=== PATIENT | male | born 1995 | race Caucasian/White ===

== ENCOUNTER 2025-04-06 01:12 | Inpatient (IN) | payer OTHER ==
[2025-04-06] VITALS (16 sets, daily range): BP systolic 98–138; BP diastolic 62–88
[~2025-04-06] VITALS: Ht 177.8 cm; Wt 98.8 kg
[~2025-04-06 01:12] MED LIST: ACET80; CODACE30 PO; DOXY100 PO; HYDACE5 PO; IBUP600 PO; IBUP800 PO; OMEP20ER PO; RXHYDACE PO; TRAM50 PO
[2025-04-06] MEDS ORDERED: Morphine Sulfate 4 MG/1 ML Injection IV ONE (01:20)
[2025-04-06 01:39] LABS: BASOPHILS ABSOLUTE AUTO 0.08 K/mm3 (0.00-0.23); BASOPHILS PERCENT AUTO 1 % (0-2); EOSINOPHILS ABSOLUTE AUTO 0.25 K/mm3 (0.00-0.68); EOSINOPHILS PERCENT AUTO 3 % (0-6); Hematocrit 41.2 % (37.0-53.0); Hemoglobin 14.0 g/dL (13.5-17.5); IMMATURE GRAN ABSOLUTE AUTO 0.04 K/mm3 (0.00-0.10); IMMATURE GRAN PERCENT AUTO 0 % (0-1); LYMPHOCYTES ABSOLUTE AUTO 2.82 K/mm3 (0.84-5.20); LYMPHOCYTES PERCENT AUTO 28 % (21-46); MONOCYTES ABSOLUTE AUTO 0.72 K/mm3 (0.16-1.47); MONOCYTES PERCENT AUTO 7 % (4-13); Mean Corpuscular HGB Conc 34.0 g/dL (31.5-36.5); Mean Corpuscular Volume 84 fL (80-100); NEUTROPHILS ABSOLUTE AUTO 6.24 K/mm3 (1.96-9.15); NEUTROPHILS PERCENT AUTO 61 % (41-73); NRBC ABSOLUTE 0.00 K/mm3 (0.00-0.02); NRBC Auto 0.0 /100 WBC (0.0-0.2); Platelet Count 339 K/mm3 (150-400); RDW Coefficient Variation 12.4 % (11.7-14.2); RDW Standard Deviation 37.2 fL (35.1-46.3)
[2025-04-06] MEDS ORDERED: HYDROmorphone HCl/Pf 1MG SYR IV PRN ×4 (01:45→10:00)
[2025-04-06 01:53] LABS: Prothrombin Time Results 11.0 Sec (9.7-11.5)
[2025-04-06 02:14] LABS: Alanine Aminotransfer (ALT/SGP 25 U/L (12-78); Albumin, Blood 3.8 g/dL (3.4-5.0); Albumin/Globulin Ratio 1.2 (0.8-1.8); Anion Gap 8 mmol/L (3-11); Aspartate Aminotrans (AST/SGOT 21 U/L (12-37); Bilirubin, Total 0.4 mg/dL (0.1-1.0); Blood Urea Nitrogen 11 mg/dL (8-24); CO2, Blood 27 mmol/L (21-32); Calcium, Blood 9.0 mg/dL (8.5-10.1); Chloride, Blood 109 mmol/L (98-108); Creatinine, Blood 1.04 mg/dL (0.60-1.20); Ethanol (Alcohol), Blood, Med <3 mg/dL; Globulin, Blood 3.2 g/dL (2.2-4.0); Glucose, Blood 108 mg/dL (70-99); Potassium, Blood 3.9 mmol/L (3.5-5.5); Sodium, Blood 140 mmol/L (136-145); Total Protein, Blood 7.0 g/dL (6.4-8.2)
[2025-04-06] MEDS ORDERED: Ketamine HCl 100 MG / ML 5ML Vial IV ONE (03:55)
[2025-04-06] MEDS ORDERED: NS 1,000 ML IV ONE (03:59)
[2025-04-06] MEDS ORDERED: Propofol 10mg/ml 20 ml Vial (Procedural) IV ONE (04:00)
[2025-04-06] MEDS ORDERED: NS 1,000 ML IV SCH (04:10)
[2025-04-06] MEDS ORDERED: Ondansetron HCl 2 MG / ML 2ML Vial IV PRN ×2 (04:10→12:55)
[2025-04-06] MEDS ORDERED: Tranexamic Acid 100 ML IV SCH (04:55)
[2025-04-06] MEDS ORDERED: CeFAZolin Sodium 2,000 MG in NS 100 ML IV SCH ×2 (04:55→22:00)
--- NOTE | 2025-04-06 05:00 | NUR ---
ARRIVAL TO SURGICAL UNIT ROOM 214 FROM ER. PT ARRIVED VIA RNEY AT 0440. PT VERY PAINFUL WITH TRANSFERING FROM [facility] TO HOSPITAL BED VIA SLIDER SHEET. SPLINT TO RLE C/D/I, CAP REFILL AND PULSES INTACT. PT ORIENTED TO ROOM AND CALL LIGHT, INFORMED OF UNIT POLICIES AND PROCEDURES. ENCOURAGED TO SEND HOME NON ESSENTIAL ITEMS AND TO REMOVE ANY IGNITION SOURCES TO CAR. PT VERBALIZED UNDERSTANDING.
--- NOTE | 2025-04-06 07:00 | NUR ---
SHIFT SUMMARY NOC. PT ADMIT FOR RIGHT TIB/FIB FX. PT A/O X4, PT MEDICATED FOR PAIN WITH IV DILAUDID WITH SOME RELIEF OF SX. SURGICAL INFECTION PREVENTION COMPLETE. SPLINT TO RLE C/D/I. PT MAKES NEEDS KNOWN, CALL LIGHT IN REACH.
--- NOTE | 2025-04-06 08:20 | NUR ---
TO DAY SURGERY VIA HOSPITAL BED
[2025-04-06] MEDS ORDERED: FentaNYL Citrate 50 MCG/ML 2 ML Injection ONE (09:41)
[2025-04-06] MEDS ORDERED: Midazolam HCl 1MG / ML 2ML Vial ONE (09:41)
[2025-04-06] MEDS ORDERED: Rocuronium Bromide 10 MG/ML 5ML Injection IV ONE (09:42)
[2025-04-06] MEDS ORDERED: Albuterol 2.5 MG/3 ML VIAL INH PRN (10:00)
[2025-04-06] MEDS ORDERED: FentaNYL Citrate 50 MCG/ML 2 ML Injection IV PRN ×3 (10:00→12:55)
[2025-04-06] MEDS ORDERED: HYDROmorphone HCl/Pf 1MG SYR ONE (10:10)
[2025-04-06] MEDS ORDERED: Phenylephrine HCl 100 MCG/ML-NS 10MLSYR (1MG/10ML) ONE ×2 (10:17→10:39)
[2025-04-06] MEDS ORDERED: Dexamethasone Sod Phos 10 MG/ML 1ML VIAL ONE (10:20)
[2025-04-06] MEDS ORDERED: ePHEDrine Sulfate 50 MG/ML 1ML Injection ONE (10:35)
[2025-04-06] MEDS ORDERED: HYDROcodone 5-APAP 325 TAB PO PRN (12:50)
[2025-04-06] MEDS ORDERED: Tranexamic Acid 100 ML IV ONE (13:30)
[2025-04-06] MEDS ORDERED: CeFAZolin Sodium 1000 mg Vial ONE ×2 (13:44)
[2025-04-06] MEDS ORDERED: Ondansetron HCl 2 MG / ML 2ML Vial ONE (14:14)
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
--- NOTE | 2025-04-06 18:22 | NUR ---
ATTEMPTED ICE PACK. PT COULD NOT TOLERATE. REFUSES TO FULLY ELEVATE R LEG. ONLY PILLOWS UNDER KNEE BOTH KNEES.
--- NOTE | 2025-04-06 19:21 | NUR ---
ALLOWED 1 PILLOW UNDER HEEL FOR SOME ELEVATION. VERY PAINFUL.
[2025-04-06] MEDS ORDERED: Potassium Chloride 10 Meq Tablet SA PO ONE (20:55)
[2025-04-07 03:54] VITALS: BP 112/68
--- NOTE | 2025-04-07 04:20 | NUR ---
SHIFT SUMMARY PT S/P TIB/FIB REPAIR, POD 0. PT HAS BEEN PAINFUL REQUIERING PRN'S Q2HR ORDERED. PT REPORTS RELIEF OF PAIN WITH PAIN MEDICATIONS. SURGICAL DRESSING INTACT. R LEG ELEVATED. TOES ON RIGHT FOOT ARE WARM TO TOUCH AND PT REPORTS SENSATION. POST OP VITALS STABLE. IV ANTIBIOTICS INFUSED. PT HAS NOT YET VOIDED POST OP. PT WAS STRAIGHT CATH JUST BEFORE SHIFT CHANGE POST OP. BLADDER SCAN THIS AM REVEALED OVER 964 MLS IN BLADDER. PT WANTED TO ATTEMPT TO TRY BEFORE CATHETER. HOWEVER, PT HAS BEEN UNSUCCESSFUL. PT AGREEABLE TO STRAIGHT CATH AT THIS TIME. PT TO BE STRAIGHT CATH PER PROTOCOL. NO OTHER CHANGES TO REPORT OVERNIGHT. BED IN LOWEST POSITION, CALL LIGHT WITHIN REACH.
[2025-04-07] MEDS ORDERED: HYDROmorphone HCl/Pf 1MG SYR IV PRN (05:40)
--- NOTE | 2025-04-07 06:22 | NUR ---
RUEDA CATHETER RUEDA CATHETER ORDER OBTAINED AND RUEDA WAS PLACED BY [employer] PRODUCER. 800 MLS OF URINE DRAINED SO FAR AT THIS TIME.
[2025-04-07 07:22] VITALS: BP 137/73
[2025-04-07 07:33] LABS: BASOPHILS ABSOLUTE AUTO 0.02 K/mm3 (0.00-0.23); BASOPHILS PERCENT AUTO 0 % (0-2); EOSINOPHILS ABSOLUTE AUTO 0.02 K/mm3 (0.00-0.68); EOSINOPHILS PERCENT AUTO 0 % (0-6); Hematocrit 29.0 % (37.0-53.0); Hemoglobin 9.7 g/dL (13.5-17.5); IMMATURE GRAN ABSOLUTE AUTO 0.04 K/mm3 (0.00-0.10); IMMATURE GRAN PERCENT AUTO 0 % (0-1); LYMPHOCYTES ABSOLUTE AUTO 1.62 K/mm3 (0.84-5.20); LYMPHOCYTES PERCENT AUTO 15 % (21-46); MONOCYTES ABSOLUTE AUTO 1.02 K/mm3 (0.16-1.47); MONOCYTES PERCENT AUTO 10 % (4-13); Mean Corpuscular HGB Conc 33.4 g/dL (31.5-36.5); Mean Corpuscular Volume 87 fL (80-100); NEUTROPHILS ABSOLUTE AUTO 7.98 K/mm3 (1.96-9.15); NEUTROPHILS PERCENT AUTO 75 % (41-73); NRBC ABSOLUTE 0.00 K/mm3 (0.00-0.02); NRBC Auto 0.0 /100 WBC (0.0-0.2); Platelet Count 231 K/mm3 (150-400); RDW Coefficient Variation 12.5 % (11.7-14.2); RDW Standard Deviation 39.1 fL (35.1-46.3)
[2025-04-07 07:54] LABS: Anion Gap 6.0 mmol/L (3-11); Blood Urea Nitrogen 9.0 mg/dL (8-24); CO2, Blood 29.0 mmol/L (21-32); Calcium, Blood 8.5 mg/dL (8.5-10.1); Chloride, Blood 106.0 mmol/L (98-108); Creatinine, Blood 0.8 mg/dL (0.60-1.20); Glucose, Blood 147.0 mg/dL (70-99); Potassium, Blood 3.5 mmol/L (3.5-5.5); Sodium, Blood 137.0 mmol/L (136-145)
--- NOTE | 2025-04-07 12:18 | NUR ---
MEDICATED PT FOR PAIN WITH IV + ORAL MEDICATIONS. ENCOURAGED AND EDUCATED PT ON IMPORTANCE OF ELEVATION. ATTEMPTED TO ADD ANOTHER PILLOW UNDER RLE PT REPORTS "THROBBING" PAIN. PT UNABLE TO TOLERATE REPOSITIONING AND ASKED THIS RN NOT TO TOUCH RLE. YELLOW/PINK DRAINAGE NOTED ON DRESSING ON BACK OF CALF. PT REFUSED TO LET THIS RN FURTHER ASSESS DRAINAGE.
[2025-04-07 16:24] VITALS: BP 124/76
--- NOTE | 2025-04-07 17:24 | NUR ---
PATIENT REFUSED CATH CARE.RN IN ROOM WHEN PATIENT REFUSED.
--- NOTE | 2025-04-07 17:43 | NUR ---
SHIFT SUMMARY PT STRUGGLES WITH PAIN CONTROL. PT FINALLY AGREED TO HAVE RLE ELEVATED HIGHER ABOVE LEVEL OF HEART AND ICE TO R THIGH. IV DILAUDID/2 REJI/VALIUM FOR PAIN CONTROL. RUEDA IN PLACE AND PATENT. REPOSITIONING PRN WHEN PT REQUESTS. IV ABX PER ORDERS. VSS. PLAN FOR NPO AT MIDNIGHT FOR SUGERY TOMORROW. CALL LIGHT WITHIN REACH.
[2025-04-07 19:19] VITALS: BP 136/75
[2025-04-08] VITALS (13 sets, daily range): BP systolic 125–159; BP diastolic 68–84
--- NOTE | 2025-04-08 05:15 | NUR ---
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
[2025-04-08] MEDS ORDERED: Tranexamic Acid 100 ML IV SCH ×2 (07:25→12:05)
[2025-04-08] MEDS ORDERED: HYDROmorphone HCl/Pf 1MG SYR IV PRN ×3 (11:35→18:20)
--- NOTE | 2025-04-08 14:33 | NUR ---
ANXIETY PT HAS BEEN EXPERIENCING ANXIETY TODAY. WHEN PT HAS INCREASED ANXIETY HE YELLS OUT AND SAYS OUCH AND CURSES. DURING EPISODES PT IS UNABLE TO CLEARLY STATE IF PAIN OR ANXIETY IS WORSE. AFTER MEDICATING FOR PAIN AT 1115 PT REPORTED FEELING LIKE STAFF WAS JUST GIVING HIM PAIN MEDICATION TO CALM HIM DOWN. THIS RN ASKED IF PAIN OR ANXIETY IS WORSE. PT REPORTS ANXIETY IS WORSE THAN PAIN. PT'S S/O AT THE BEDSIDE DURING THIS TIME. THIS RN REACHED OUT TO DR. CARMEN REGARDING ANXIETY, XANAX ORDERED. PT WOKE FROM A NAP, INITIALLY HE DENIED BOTH PAIN AND ANXIETY WHEN MEDICATION WAS OFFERED. PT QUICKLY ESCALATED TO CURSING, MOANING AND SAYING OUCH. HE ALSO REPORTS FEELING LIKE HE CANNOT VOID. BLADDER SCAN OFFERED AND DECLINED BY PATIENT. PT ASKING TO GET OOB AND SIT IN A WHEELCHAIR, PT EDUCATED THAT GETTING OOB MAY NOT BE SAFE R/T INCREASED ANXIETY LEVELS AND PAIN WITH ANY MOVEMENT. OTHER REPOSITIONG OPTIONS OFFERED AND DECLINED BY PATIENT. PT DOES RESPOND SOMEWHAT WELL TO CALM CLEAR INSTRUCTION. HE ALSO BENEFITS FROM THERAPEUTIC LISTENING.
[2025-04-08] MEDS ORDERED: FentaNYL Citrate 50 MCG/ML 2 ML Injection ONE (15:47)
[2025-04-08] MEDS ORDERED: Naloxone HCl 0.4MG / ML 1ML Vial IV PRN ×2 (16:00→18:20)
[2025-04-08] MEDS ORDERED: FentaNYL Citrate 50 MCG/ML 2 ML Injection IV PRN ×2 (16:05)
[2025-04-08] MEDS ORDERED: Albuterol 2.5 MG/3 ML VIAL INH PRN (16:05)
[2025-04-08] MEDS ORDERED: Ondansetron HCl 2 MG / ML 2ML Vial IV PRN ×2 (16:05→18:20)
[2025-04-08] MEDS ORDERED: Midazolam HCl 1MG / ML 2ML Vial IV PRN (16:05)
--- NOTE | 2025-04-08 16:18 | NUR ---
ANXIETY PT IS HAVING INCREASED ANXIETY AND WOULD LIKE TO KNOW WHEN SURGERY WILL BE. PT HAS BEEN UPDATED T/O THE DAY THAT HE REMAINS ON THE LIST FOR SURGERY AND THAT HIS CASE HAS NOT BEEN CANCELED BUT STAFF WILL UPDATE HIM WHEN AN UPDATE IS AVALIABLE. THIS RN HAS REACHED OUT TO OR STAFF, WHO REPORT THAT SURGERY IS STILL THE PLAN, PT NOTIFIED. PT EXPRESSED WANTING TO TALK TO A DOCTOR. HE WAS YELLING OUT. HE DECLINED PAIN MEDICATION UNTIL HE COULD SPEAK TO THE DOCTOR. DR. CARMEN CAME AND SPOKE WITH THE PATIENT, SHE EXPLAINED THAT HE IS STILL SCHEDULED FOR SURGERY BUT THE SURGEON IS STILL IN THE OR WITH OTHER PATIENTS. PT THEN RE-OFFERED PAIN MEDICATION, HE DECLINED. APPROXIMATELY 5 MINUTES LATER PT CALLED STAFF TO ROOM TO ASSIST WITH REPOSITIONING, PT'S BACK WAS WASHED AND DRIED PER HIS REQUEST. HE WAS ABLE TO MOVE INDEPENDENTLY TO ALLOW STAFF TO WASH HIS BACK. PT REQUESTED THAT PILLOWS BE REMOVED FROM UNDER HIS R KNEE, HE WAS ASSISTED WITH THIS TASK. PAIN MEDICATION AGAIN OFFERED AND PATIENT DECLINED. PT CALLED STAFF BACK TO THE ROOM REQUESTING AN UPDATE, REITERATED PREVIOUS UPDATES. PAIN MEDICATION AGAIN OFFERED SINCE PT WAS COMPLAINING OF PAIN. HE AGREED TO PAIN MEDICATION. WHEN RN RETURNED TO THE ROOM PT WAS RESTING WITH EYES CLOSED, RESP RATE AND EFFORT EVEN AND UNLABORED.
[2025-04-08] MEDS ORDERED: Magnesium Hydroxide Conc 10 ML UDC PO PRN (18:15)
[2025-04-08] MEDS ORDERED: Ondansetron HCl 2 MG / ML 2ML Vial ONE (18:36)
[2025-04-08] MEDS ORDERED: Dexamethasone Sod Phos 10 MG/ML 1ML VIAL ONE (18:36)
--- NOTE | 2025-04-08 19:01 | NUR ---
04/08/251900 Vladimir Santo ON SCHEDULED ANTIBIOTICS
--- NOTE | 2025-04-08 19:12 | NUR ---
SHIFT SUMMARY PT HAS BEEN ANXIOUS AND PAINFUL T/O THE DAY. PT YELLS OUT/CURSES WHEN AWAKE/ANXIOUS, OCCASIONALLY HE RESPONDS TO THERAPEUTIC LISTENING AND REASSURANCE. PT RESPONDS TO CALM/FIRM INSTRUCTION. FRIENDS/FAMILY HAVE BEEN PRESENT FOR SUPPORT. PAIN MANAGED WITH DILAUDID, XANAX FOR ANXIETY. REPORT GIVEN TO TESS LUTHER.
--- NOTE | 2025-04-08 20:41 | NUR ---
PT ARRIVED FROM PACU AT 1999. REPORT RECIEVED FROM INDUSTRIAL HYGIENISTASHKAN WEAVER. PT SLEEPY BUT DOES OPEN EYES TO VOICE AND IS ABLE TO LIFT HIS ARM TO GET BLOOD PRESSURE CUFF ON. PT ON RA AND O2 SATS MID TO HIGH 90'S AT THIS TIME. VITALS ALL STABLE. LARGE WRAP DRESSING TO RLE, TOES WARM AND PINK WITH GOOD CAP REFILL. PT APPEARS COMFORTABLE AND SHOWING NO SIGNS OF DISTRESS. FIRST DOSE OF TXA STARTED BY PACU NURSE AT 1945, 2ND DOSE TO START 3 HOURS LATER. PT'S AND FRIEND AT THE BEDSIDE.
[2025-04-09 02:45] VITALS: BP 134/64
--- NOTE | 2025-04-09 04:44 | NUR ---
FOOD AND BEVERAGE OUTLETS MANAGER SUMMARY PT ARRIVED FROM PACU SHORTLY AFTER START OF SHIFT AFTER AN I&D OF HIS RLE. PT DROWSY POST OP BUT DID WAKE UP AND RESPOND TO STAFF. ALL POST OP VITALS WNL. RLE WRAPPED IN CALLIE WRAP, TOES WITH GOOD CAP REFILL AND PT HAS FULL SENSATION. ABLE TO WIGGLE TOES WELL. PAIN CONTROL HAS BEEN MUCH BETTER TONIGHT, PT REQUIRED ONE DOSE OF IV DILAUDID 0.5 MG EARLY IN THE SHIFT AND THEN A 5 MG ROXICODONE LATER ON IN THE MORNING AND PT HAS BEEN COMFORTABLE AND HAS SLEPT WELL TONIGHT. PT HAS REMAINED ON ROOM AIR AND SATS ARE MID 90'S EVEN AFTER PAIN MEDS. PT HAD A FEW BITES OF SOME FOOD THAT FAMIILY BROUGHT IN FOR HIM AND HAS TOLERATED THAT WITH NO PROBLEM. WCTM.
[2025-04-09 07:26] VITALS: BP 124/66
[2025-04-09 10:44] LABS: BASOPHILS ABSOLUTE AUTO 0.01 K/mm3 (0.00-0.23); BASOPHILS PERCENT AUTO 0 % (0-2); EOSINOPHILS ABSOLUTE AUTO 0.00 K/mm3 (0.00-0.68); EOSINOPHILS PERCENT AUTO 0 % (0-6); Hematocrit 26.1 % (37.0-53.0); Hemoglobin 8.9 g/dL (13.5-17.5); IMMATURE GRAN ABSOLUTE AUTO 0.04 K/mm3 (0.00-0.10); IMMATURE GRAN PERCENT AUTO 0 % (0-1); LYMPHOCYTES ABSOLUTE AUTO 0.54 K/mm3 (0.84-5.20); LYMPHOCYTES PERCENT AUTO 4 % (21-46); MONOCYTES ABSOLUTE AUTO 0.66 K/mm3 (0.16-1.47); MONOCYTES PERCENT AUTO 5 % (4-13); Mean Corpuscular HGB Conc 34.1 g/dL (31.5-36.5); Mean Corpuscular Volume 85 fL (80-100); NEUTROPHILS ABSOLUTE AUTO 12.17 K/mm3 (1.96-9.15); NEUTROPHILS PERCENT AUTO 91 % (41-73); NRBC ABSOLUTE 0.00 K/mm3 (0.00-0.02); NRBC Auto 0.0 /100 WBC (0.0-0.2); Platelet Count 275 K/mm3 (150-400); RDW Coefficient Variation 12.1 % (11.7-14.2); RDW Standard Deviation 37.2 fL (35.1-46.3)
[2025-04-09 11:39] LABS: Anion Gap 8.0 mmol/L (3-11); Blood Urea Nitrogen 5.0 mg/dL (8-24); CO2, Blood 27.0 mmol/L (21-32); Calcium, Blood 8.4 mg/dL (8.5-10.1); Chloride, Blood 107.0 mmol/L (98-108); Creatinine, Blood 0.62 mg/dL (0.60-1.20); Glucose, Blood 151.0 mg/dL (70-99); Potassium, Blood 4.0 mmol/L (3.5-5.5); Sodium, Blood 138.0 mmol/L (136-145)
[2025-04-09] MEDS ORDERED: CeFAZolin Sodium 2,000 MG in NS 100 ML IV SCH (16:00)
--- NOTE | 2025-04-09 17:48 | NUR ---
END OF SHIFT PT RESTING. UP WITH PT EARLIER TODAY. RECENTLY MEDICATED FOR PAIN. PRESENTLY VISITING WITH FRIENDS AND FAMILY; EATING FOOD THAT FAMILY BROUGHT IN. LAUGHING AND JOKING WITH FAMILY AND FRIENDS. WILL CONTINUE TO MONITOR.
[2025-04-09 18:27] VITALS: BP 128/70
[2025-04-10 03:59] VITALS: BP 129/72
[2025-04-10 04:24] LABS: BASOPHILS ABSOLUTE AUTO 0.02 K/mm3 (0.00-0.23); BASOPHILS PERCENT AUTO 0 % (0-2); EOSINOPHILS ABSOLUTE AUTO 0.05 K/mm3 (0.00-0.68); EOSINOPHILS PERCENT AUTO 1 % (0-6); Hematocrit 25.9 % (37.0-53.0); Hemoglobin 8.7 g/dL (13.5-17.5); IMMATURE GRAN ABSOLUTE AUTO 0.05 K/mm3 (0.00-0.10); IMMATURE GRAN PERCENT AUTO 1 % (0-1); LYMPHOCYTES ABSOLUTE AUTO 1.91 K/mm3 (0.84-5.20); LYMPHOCYTES PERCENT AUTO 20 % (21-46); MONOCYTES ABSOLUTE AUTO 0.70 K/mm3 (0.16-1.47); MONOCYTES PERCENT AUTO 7 % (4-13); Mean Corpuscular HGB Conc 33.6 g/dL (31.5-36.5); Mean Corpuscular Volume 87 fL (80-100); NEUTROPHILS ABSOLUTE AUTO 7.06 K/mm3 (1.96-9.15); NEUTROPHILS PERCENT AUTO 72 % (41-73); NRBC ABSOLUTE 0.00 K/mm3 (0.00-0.02); NRBC Auto 0.0 /100 WBC (0.0-0.2); Platelet Count 339 K/mm3 (150-400); RDW Coefficient Variation 12.2 % (11.7-14.2); RDW Standard Deviation 38.8 fL (35.1-46.3)
[2025-04-10 04:51] LABS: Anion Gap 7.0 mmol/L (3-11); Blood Urea Nitrogen 7.0 mg/dL (8-24); CO2, Blood 28.0 mmol/L (21-32); Calcium, Blood 8.6 mg/dL (8.5-10.1); Chloride, Blood 106.0 mmol/L (98-108); Creatinine, Blood 0.71 mg/dL (0.60-1.20); Glucose, Blood 141.0 mg/dL (70-99); Potassium, Blood 3.5 mmol/L (3.5-5.5); Sodium, Blood 137.0 mmol/L (136-145)
--- NOTE | 2025-04-10 04:55 | NUR ---
MANAGER OF FINANCIAL SUMMARY NO ACUTE CHANGES THIS SHIFT. RLE WITH GOOD SENSATION AND CAP REFILL. PT ABLE TO WIGGLE TOES AND DENIES N/T TO AREA. PAIN WELL CONTROLLED TONIGHT, SEE NOV. PT WAS ABLE TO AMBULATE TO THE RECLINER AND SPENT A FEW HOURS SITTING UP WITH LEGS ELEVATED. PT HAS NOT REQUIRED ANY O2 TONIGHT AFTER PAIN MED ADMINISTRATION. GAVE PRN XANAX ONCE FOR SOME MILD ANXIETY. VITALS STABLE, WCTM.
--- NOTE | 2025-04-10 05:33 | NUR ---
PATIENT CARE PATIET DECLINED CATH CARE AT START OF SHIFT, PT DECLINED TECH AND WOULDN'T DO IT THEMSELVES. PT DECLINED CATH CARE AT 0400. PT HAS BEEN NOTIFIED OF RISK FOR UTI AND OTHER INFECTIONS. NURSE IS NOTIFIED.
--- NOTE | 2025-04-10 06:49 | NUR ---
RUEDA CATH REMOVED AT 0615 BY SPORTS DIRECTOR. REMOVED WNL. PT TOLERATED WELL.
[2025-04-10 07:54] VITALS: BP 113/69
[2025-04-10] MEDS ORDERED: Polyethylene Glycol 3350 17 gm PO SCH (12:00)
[2025-04-10 15:33] VITALS: BP 121/65
--- NOTE | 2025-04-10 17:07 | NUR ---
PT RESTING. PT WAS ABLE TO VOID SUCCESSFULLY AFTER RUEDA REMOVAL THIS AM. PLAN IS NPO AFTER MIDNIGHT FOR CLOSURE R LEG IN THE AM. PT WILLING WORKED WITH PT/OT TODAY.
[2025-04-10] MEDS ORDERED: Tranexamic Acid 100 ML IV SCH (18:10)
[2025-04-10 19:28] VITALS: BP 131/80
[2025-04-10] MEDS ORDERED: Docusate Sodium/Senna 1 Tab PO SCH (21:00)
[2025-04-11] VITALS (16 sets, daily range): BP systolic 118–146; BP diastolic 67–95
--- NOTE | 2025-04-11 04:57 | NUR ---
SHIFT SUMMARY POD 5 R TIB/FIB Fx & FASCIOTOMY. NPO, ANTICIPATED SURGERY LATER TODAY. CALLIE WRAP TO RLE C/D/I. PT ABLE TO WIGGLE TOES & MOVE EXTREMITY IND. BRISK CAP REFILL, GOOD SENSATION. PT REQUIRES IV DILAUDID APPROX Q2HR R/T INCREASED PAIN. MEDICATED ONCE AT BEGINNING OF SHIFT FOR ANX. PT APPRECIATED THERATUPIC LISTENING & COMMUNICATION c INCREASED ANX. RLE ELEVATED ON PILLOWS. ABLE TO AMB TO RECLINER c FWW/GB & SLEPT FOR A COUPLE HOURS. VOIDING IND. IV FLUIDS/ABX INFUSING PER EMAR. CALL LIGHT IN REACH, BED IN LOWEST POSITION, WILL REPORT TO DAY RN.
[2025-04-11 05:05] LABS: BASOPHILS ABSOLUTE AUTO 0.06 K/mm3 (0.00-0.23); BASOPHILS PERCENT AUTO 1 % (0-2); EOSINOPHILS ABSOLUTE AUTO 0.21 K/mm3 (0.00-0.68); EOSINOPHILS PERCENT AUTO 2 % (0-6); Hematocrit 26.6 % (37.0-53.0); Hemoglobin 8.7 g/dL (13.5-17.5); IMMATURE GRAN ABSOLUTE AUTO 0.08 K/mm3 (0.00-0.10); IMMATURE GRAN PERCENT AUTO 1 % (0-1); LYMPHOCYTES ABSOLUTE AUTO 2.15 K/mm3 (0.84-5.20); LYMPHOCYTES PERCENT AUTO 24 % (21-46); MONOCYTES ABSOLUTE AUTO 0.70 K/mm3 (0.16-1.47); MONOCYTES PERCENT AUTO 8 % (4-13); Mean Corpuscular HGB Conc 32.7 g/dL (31.5-36.5); Mean Corpuscular Volume 88 fL (80-100); NEUTROPHILS ABSOLUTE AUTO 5.72 K/mm3 (1.96-9.15); NEUTROPHILS PERCENT AUTO 64 % (41-73); NRBC ABSOLUTE 0.00 K/mm3 (0.00-0.02); NRBC Auto 0.0 /100 WBC (0.0-0.2); Platelet Count 399 K/mm3 (150-400); RDW Coefficient Variation 12.3 % (11.7-14.2); RDW Standard Deviation 39.8 fL (35.1-46.3)
[2025-04-11 05:32] LABS: Anion Gap 7.0 mmol/L (3-11); Blood Urea Nitrogen 11.0 mg/dL (8-24); CO2, Blood 28.0 mmol/L (21-32); Calcium, Blood 8.3 mg/dL (8.5-10.1); Chloride, Blood 106.0 mmol/L (98-108); Creatinine, Blood 0.71 mg/dL (0.60-1.20); Glucose, Blood 102.0 mg/dL (70-99); Potassium, Blood 3.8 mmol/L (3.5-5.5); Sodium, Blood 137.0 mmol/L (136-145)
[2025-04-11] MEDS ORDERED: Tranexamic Acid 100 ML IV SCH (06:00)
--- NOTE | 2025-04-11 09:41 | NUR ---
PT BEEN TO [facility] BY BED WITH MULT ASSIST. History, Chart, Medications and Allergies reviewed before start of procedure.Patient confirms NPO status and agrees with scheduled surgery. Pre-Op teaching done. Pt verbalizes understanding. Lungs clear T/O to Auscultation.
--- NOTE | 2025-04-11 09:53 | NUR ---
PT TO OR AT ABOUT 0962
[2025-04-11] MEDS ORDERED: FentaNYL Citrate 50 MCG/ML 2 ML Injection ONE (10:06)
[2025-04-11] MEDS ORDERED: Midazolam HCl 1MG / ML 2ML Vial ONE (10:06)
[2025-04-11] MEDS ORDERED: Ketorolac Tromethamine 30mg Vial ONE ×2 (10:11→10:45)
[2025-04-11] MEDS ORDERED: Dexamethasone Sod Phos 10 MG/ML 1ML VIAL ONE (10:11)
[2025-04-11] MEDS ORDERED: Ondansetron HCl 2 MG / ML 2ML Vial ONE (10:11)
[2025-04-11] MEDS ORDERED: FentaNYL Citrate 50 MCG/ML 2 ML Injection IV PRN ×2 (10:30→10:35)
[2025-04-11] MEDS ORDERED: Ondansetron HCl 2 MG / ML 2ML Vial IV PRN (10:30)
[2025-04-11] MEDS ORDERED: Metoclopramide HCl 5MG / ML 2ML Vial IV PRN (10:35)
[2025-04-11] MEDS ORDERED: Albuterol 2.5 MG/3 ML VIAL INH PRN (10:35)
[2025-04-11] MEDS ORDERED: HYDROmorphone HCl/Pf 1MG SYR IV PRN (10:35)
[2025-04-11] MEDS ORDERED: Morphine Sulfate 4 MG/1 ML Injection IV PRN (10:35)
--- NOTE | 2025-04-11 11:42 | NUR ---
POST OP: REPORT RECEIVED FROM COLLECTION CARD CLERK. PT TO UNIT AT ABOUT 1130. VSS, IS ORIENTED, DROWSY. AWAKENS TO VOICE AND FOLLOWS COMMANDS. SURGICAL SITE WNL, ELEVATED ON PILLOWS. +2 PEDAL PULSE. CALL LIGHT IN REACH
--- NOTE | 2025-04-11 14:02 | NUR ---
Spiritual Care Visit Attempted Pt. is awake but displays evidence of not welcoming any sort of visit. Pt. respectfully verbalizes his decline of spiritual care. This Business Unit Director honored his request. As this supervisor metal placing was departing the Pt. verbalized questions about his surgery in such a way that he displayed evidence of confusion.
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
--- NOTE | 2025-04-11 18:48 | NUR ---
SUMMARY: PT IS POD0 I&D WITH WOUND CLOSER. PT DROWSY, AWAKENS TO VOICE AND FOLLOWS COMMANDS. ELEVATING LEG ON PILLOW. PT MADI DIET AND VOIDED. THERAPY PLANS TO WORK WITH PT TOMORROW. PT CONTINUES TO NEED PAIN MEDICATION OFTEN, SEE EMAR. HOPE TO TRANSITION TO PO PAIN MANAGEMENT. CONT BI OX IN PLACE, SP02 99% ON RA, VSS AND SENSATION INTACT. NO ACUTE CONCERNS AT THIS TIME.
[2025-04-12 04:28] VITALS: BP 108/66
[2025-04-12 04:31] LABS: BASOPHILS ABSOLUTE AUTO 0.01 K/mm3 (0.00-0.23); BASOPHILS PERCENT AUTO 0 % (0-2); EOSINOPHILS ABSOLUTE AUTO 0.01 K/mm3 (0.00-0.68); EOSINOPHILS PERCENT AUTO 0 % (0-6); Hematocrit 26.4 % (37.0-53.0); Hemoglobin 9.0 g/dL (13.5-17.5); IMMATURE GRAN ABSOLUTE AUTO 0.08 K/mm3 (0.00-0.10); IMMATURE GRAN PERCENT AUTO 1 % (0-1); LYMPHOCYTES ABSOLUTE AUTO 1.30 K/mm3 (0.84-5.20); LYMPHOCYTES PERCENT AUTO 9 % (21-46); MONOCYTES ABSOLUTE AUTO 0.81 K/mm3 (0.16-1.47); MONOCYTES PERCENT AUTO 6 % (4-13); Mean Corpuscular HGB Conc 34.1 g/dL (31.5-36.5); Mean Corpuscular Volume 87 fL (80-100); NEUTROPHILS ABSOLUTE AUTO 12.34 K/mm3 (1.96-9.15); NEUTROPHILS PERCENT AUTO 85 % (41-73); NRBC ABSOLUTE 0.00 K/mm3 (0.00-0.02); NRBC Auto 0.0 /100 WBC (0.0-0.2); Platelet Count 467 K/mm3 (150-400); RDW Coefficient Variation 12.0 % (11.7-14.2); RDW Standard Deviation 37.7 fL (35.1-46.3)
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
[2025-04-12 04:55] LABS: Anion Gap 8.0 mmol/L (3-11); Blood Urea Nitrogen 11.0 mg/dL (8-24); CO2, Blood 27.0 mmol/L (21-32); Calcium, Blood 8.8 mg/dL (8.5-10.1); Chloride, Blood 108.0 mmol/L (98-108); Creatinine, Blood 0.56 mg/dL (0.60-1.20); Glucose, Blood 104.0 mg/dL (70-99); Potassium, Blood 4.5 mmol/L (3.5-5.5); Sodium, Blood 138.0 mmol/L (136-145)
[2025-04-12 07:20] VITALS: BP 127/83
--- NOTE | 2025-04-12 13:33 | NUR ---
ASSUMPTION OF CARE ASSUMED CARE OF PT @0700. AXO4. VSS. MEDICATED PER EMAR FOR PAIN. DR LIVINGSTON INTO ROOM DURING SHUFT CHANGE, CLEANED ALL SUTURE LINES WITH HYDROGEN PEROXIDE AND REDRESSED WITH ABD PADS AND CALLIE WRAP. DR LIVINGSTON OK'S PT FOR DC. PT REQUESTING TO GO HOME. MANAGING MEMBER, PHYSICIANS, THIS RN, AND PHYSICAL THERAPY ALL WORKING ON FINDING THE CORRECT DC ROUTE FOR PT ALONG WITH INSURANCE POSSIBILITES. 1330 PHYSICAL THERAPY IN TO SEE PT. STATES PT IS TOLERATING AMBULATION TOE TOUCH WITH FWW WELL FOR 30 - 40 FT, IS MEETING CRITERIA FOR DC HOME. DR CARMEN WORKING ON DC PAPERWORK CURRENTLY. AWAITING ALL ORDERS AND WILL PLAN TO DC PT SOON.
[2025-04-12] MEDS ORDERED: OXYC5 PO (14:54)
[2025-04-12] MEDS ORDERED: ASPI81CH PO (14:55)
[2025-04-12] MEDS ORDERED: SULTRIDS PO (14:55)
[2025-04-12] MEDS ORDERED: DOCUZEN 8.6-501 EACH PO (14:56)
[2025-04-12] MEDS ORDERED: DOCU100 PO (14:56)
[2025-04-12] MEDS ORDERED: ACET325 PO (14:56)
[2025-04-12] MEDS ORDERED: MIRALAX17 GM PO (14:57)
[2025-04-12 15:25] VITALS: BP 130/85
--- NOTE | 2025-04-12 15:55 | NUR ---
1550 PT DC'D SEE ASSUMPTION NOTE. POST ASSUMPTION NOTE, NO ACUTE CHANGES. CARE MANAGEMENT ABLE TO MAKE PHONE CALLS TO GET PT PLACED WITH PHYSICAL THERAPY, PT INSTRUCTED TO FOLLOW UP WITH THESE CLINICS. PRESCRIPTIONS SENT TO PHARMACY IN [place]. PT'S FAMILY/FRIENDS SHOWING WILLINGNESS TO AID IN CARE/REHABILITATION. VSS. MULTIPLE DRESSINGS GIVEN TO PT FOR HOME USE. RE INSTRUCTED ON WOUND CARE PER [facility] ORDERS. DC INSTRUCTIONS PROVIDED. PT WORKED WITH PATIENT, INSTRUCTIOINS PROVIDED. FRIENDS PRESENT FOR DC INSTRUCTIONS. PT STATES UNDERSTANDING. HARD SCRIPT FOR OXYCODONE WITH PT WELL ALL OTHER BELONGINGS. PT WHEELED OUT WITH FAMILY @4600.
== END 2025-04-12 15:45 | disposition home or self-care (01) | DRG 493 ==
LOC: ER 01:12 → SURS 01:13
PROVIDERS: Internal Medicine; Orthopaedic Surgery; Student in an Organized Health Care Education/Training Program; Surgery; ADMIT Surgery
PROC: 0QSJ04Z Reposition Right Fibula with Internal Fixation Device, Open Approach (ICD-10-PCS; 2025-04-06)
PROC: 0QSG04Z Reposition Right Tibia with Internal Fixation Device, Open Approach (ICD-10-PCS; principal; 2025-04-06 10:00)
DX: S82.301A Unspecified fracture of lower end of right tibia, initial encounter for closed fracture (principal); D62 Acute posthemorrhagic anemia; F84.0 Autistic disorder; S82.831A Other fracture of upper and lower end of right fibula, initial encounter for closed fracture; F41.9 Anxiety disorder, unspecified; Z91.038 Other insect allergy status; Z90.89 Acquired absence of other organs; Z98.890 Other specified postprocedural states; F17.210 Nicotine dependence, cigarettes, uncomplicated; V49.9XXA Car occupant (driver) (passenger) injured in unspecified traffic accident, initial encounter; M54.9 Dorsalgia, unspecified; G89.29 Other chronic pain
CPT/HCPCS: 27752; 36415; 70450; 71045; 71260; 72125; 73590; 74177; 80048; 80053; 80320; 83690; 85025; 85610; 90471; 90715; 94762; 96374-59; 96375-59; 96376-59; 97110; 97116; 97163; 97166; 97530; 99285-25; A9270; G0378; J0690; J1100; J1171; J1885; J2250; J2270; J2371; J2405; J2704; J3010; J3480; J7030; J7120; Q9967

== ENCOUNTER 2025-08-27 12:00 | Day surgery (SDC) | payer OTHER ==
[~2025-08-27] VITALS: Ht 177.8 cm; Wt 99.6 kg
[~2025-08-27 12:00] MED LIST changes: +ACET325 PO; +ASPI81CH PO; +DOCU100 PO; +DOCUZEN 8.6-501 EACH PO; +MIRALAX17 GM PO; +OXYC5 PO; +SULTRIDS PO
[2025-08-27] MEDS ORDERED: CeFAZolin Sodium 2,000 MG VIAL ONE (12:09)
[2025-08-27] MEDS ORDERED: CeFAZolin Sodium 2,000 MG in NS 100 ML IV SCH (12:10)
[2025-08-27] MEDS ORDERED: IBUP600 PO (12:22)
[2025-08-27] MEDS ORDERED: Midazolam HCl 1MG / ML 2ML Vial ONE (12:32)
[2025-08-27] MEDS ORDERED: FentaNYL Citrate 50 MCG/ML 2 ML Injection ONE ×2 (12:32→14:34)
[2025-08-27] MEDS ORDERED: Dexamethasone Sod Phos 10 MG/ML 1ML VIAL ONE ×2 (13:14→13:19)
[2025-08-27] MEDS ORDERED: Ondansetron HCl 2 MG / ML 2ML Vial ONE ×2 (13:14→13:19)
[2025-08-27] MEDS ORDERED: Bupivacaine 0.5% W/EPI 1:200000 SDV 30ML INJ ONE ×2 (13:25)
[2025-08-27] MEDS ORDERED: Dexmedetomidine HCL 200 MCG / 2 ML ONE (14:31)
--- NOTE | 2025-08-27 15:05 | NUR ---
08/27/25 1505 Yareli Obrien PT TO PACU WITH LMA, DR ORELLANA D/C'D IMMEDIATELY. PT COMBATIVE IN PACU, REQUIRED SEVERAL STAFF FOR ASSISTANCE. UNABLE TO ORIENT PT TO PLACE. PT BECOMES COMBATIVE WHEN BEING TOUCHED.
[2025-08-27] MEDS ORDERED: OxyCODONE 5 mg/Acetamin 325 mg TABLET ONE (15:15)
[2025-08-27 15:18] VITALS: BP 108/56
--- NOTE | 2025-08-27 15:25 | NUR ---
08/27/25 1525 Yareli Obrien 1515 PT FRIEND TIME TO BEDSIDE. 1524 PT GIVEN PERCOCET 5/325 PER MD ORDER
== END 2025-08-27 15:52 | disposition home or self-care (01) ==
LOC: ORSCSDS 12:00
PROVIDERS: Orthopaedic Surgery
PROC: 0QP104Z Removal of Internal Fixation Device from Sacrum, Open Approach (ICD-10-PCS; principal; 2025-08-27 13:45)
DX: S82.201D Unspecified fracture of shaft of right tibia, subsequent encounter for closed fracture with routine healing (principal); T85.698A Other mechanical complication of other specified internal prosthetic devices, implants and grafts, initial encounter; F84.0 Autistic disorder; F41.9 Anxiety disorder, unspecified; F17.290 Nicotine dependence, other tobacco product, uncomplicated
CPT/HCPCS: A9270; J0690; J1100; J2250; J2405; J2704; J3010; J3373; J7050; J7120